=== PATIENT | male | born 2000 | race Caucasian/White ===

== ENCOUNTER 2020-11-22 07:07 | Emergency (ER) | payer OTHER ==
[~2020-11-22] VITALS: Ht 190.5 cm; Wt 105.8 kg
[2020-11-22] MEDS ORDERED: ONDANSETRON 4 MG ORAL DISINTEGRATING TAB PO ONE (07:35)
[2020-11-22] MEDS ORDERED: MECLIZINE 25 MG TABLET PO ONE (07:35)
--- NOTE | 2020-11-22 08:00 | REPVR ---
PROCEDURE INFORMATION: Exam: CT Head Without Contrast Exam date and time: 11/22/2020 7:33 AM Age: 20 years old Clinical indication: Dizziness TECHNIQUE: Imaging protocol: Computed tomography of the head without contrast. Radiation optimization: All CT scans at this facility use at least one of these dose optimization techniques: automated exposure control; mA and/or kV adjustment per patient size (includes targeted exams where dose is matched to clinical indication); or iterative reconstruction. COMPARISON: No relevant prior studies available. FINDINGS: Brain: Normal. No hemorrhage. Unremarkable white matter. No mass effect. Cerebral ventricles: No ventriculomegaly. Bones/joints: Unremarkable. No acute fracture. Paranasal sinuses: Visualized sinuses are unremarkable. No fluid levels. Mastoid air cells: Visualized mastoid air cells are well aerated. Soft tissues: Unremarkable. IMPRESSION: No acute intracranial abnormality. Electronically signed by: Rosemarie Mares On 11/22/2020 08:01:01 AM
[2020-11-22 08:03] LABS: BASO % 0.8 % (0.0-1.0); EOS # 0.4 10^3/uL (0.0-0.5); EOS % 7.2 % (0.0-3.0); HEMATOCRIT 52.1 % (42.0-52.0); HEMOGLOBIN 17.8 g/dl (13.5-17.5); LYMPH # 1.5 10^3/uL (1.5-5.0); LYMPH % 29.7 % (24.0-44.0); MEAN CORPUSCULAR HGB CONC 34.2 g/dl (32.0-36.5); MEAN CORPUSCULAR VOLUME 90.6 fl (80.0-96.0); MONO # 0.3 10^3/uL (0.0-0.8); MONO % 6.4 % (2.0-8.0); NEUTROPHILS # 2.9 10^3/uL (1.5-8.5); NEUTROPHILS % 55.7 % (36.0-66.0); PLATELET COUNT, AUTOMATED 254 10^3/uL (150-450); RED BLOOD COUNT 5.75 10^6/uL (4.30-6.10); WHITE BLOOD COUNT 5.2 10^3/uL (4.0-10.0)
[2020-11-22 08:24] LABS: BLOOD UREA NITROGEN 13 MG/DL (7-18); CALCIUM LEVEL 9.2 MG/DL (8.5-10.1); CARBON DIOXIDE LEVEL 27 MEQ/L (21-32); CHLORIDE LEVEL 106 MEQ/L (98-107); CPK CREATINE PHOSPHOKINASE 108 U/L (39-308); CREATININE FOR GFR 1.24 MG/DL (0.70-1.30); FREE T4 0.97 NG/DL (0.76-1.46); GLOMERULAR FILTRATION RATE > 60.0 (>60); GLUCOSE, FASTING 112 MG/DL (70-100); MAGNESIUM LEVEL 2.4 MG/DL (1.8-2.4); MB/CK RELATIVE INDEX 0.93 (< OR =4); POTASSIUM SERUM 4.4 MEQ/L (3.5-5.1); SODIUM LEVEL 138 MEQ/L (136-145); TROPONIN I < 0.02 NG/ML (< 0.10)
[2020-11-22] MEDS ORDERED: ONDA4TAB6 PO (08:52)
[2020-11-22] MEDS ORDERED: MECL1TAB31 PO (08:52)
[2020-11-22 09:05] VITALS: BP 148/91
--- NOTE | 2020-11-22 20:01 | ECGEPIP ---
[facility] - ED Test Date: 2020-11-22 Pat Name: CHRISTIANO SIMS Department: Room: - Gender: Male [employer] Grade Reading Teacher: Chloe GALINDO : 2000 Requested By: NICOLE CASTANO PA-C Order Number: [id number] Reading MD: Carline De La O Measurements Intervals [place] Rate: 86 P: 76 HI: 156 QRS: 99 QRSD: 90 T: 43 QT: 370 QTc: 442 Interpretive Statements Normal sinus rhythm with sinus arrhythmia Rightward axis No prior Electronically Signed on 11-22-2020 20:01:00 EDT by Carline De La O
== END 2020-11-22 09:11 | disposition home or self-care (01) ==
LOC: M ED 07:07
DX: R42 Dizziness and giddiness (principal); E86.0 Dehydration; Z79.899 Other long term (current) drug therapy
CPT/HCPCS: 36415; 70450; 80048; 82550; 82553; 83735; 84439; 84443; 84484; 85025; 93005; 99284; Q0162

== ENCOUNTER → 2020-12-27 | Outpatient (CLI) | payer OTHER ==
[~2020-12-27] MED LIST: MECL1TAB31 PO; ONDA4TAB6 PO
--- NOTE | 2020-12-27 09:34 | REP ---
INDICATION: HTN COMPARISON: None TECHNIQUE: Real time coffey scale ultrasound examination using curved array transducer followed by color Doppler evaluation of the renal vasculature. FINDINGS: The bilateral kidneys demonstrate normal contour, reniform shape, echogenicity without hydronephrosis or obvious abnormality. Right kidney measures 10.7 x 6.1 x 4.4 cm. Left kidney measures 11.2 x 4.8 x 5.5 cm. Bladder is under distended. Color Doppler evaluation. Peak aortic velocity: 157.6 cm/sec centimeters/second RIGHT KIDNEY Renal arterial velocity: 126.1 centimeters/second Renal-aortic ratio: 1.2 Intrarenal resistive indices: 0.44-0.49 Intrarenal acceleration times: 0.022-0.050 LEFT KIDNEY Renal arterial velocity: 151.3 centimeters/second Renal-aortic ratio: 1.0 Intrarenal resistive indices: 0.48-0.58 Intrarenal acceleration times: 0.011-0.033 IMPRESSION: 1. Kidneys appear normal. 2. Doppler interegation without sonographic evidence for renal arterial stenosis. <Electronically signed by Pradeep Hagan > 12/27/20 [id number]
== END ==
LOC: M RAD 08:55
PROVIDERS: ATTEND Physician Assistant
DX: R42 Dizziness and giddiness (principal)